=== PATIENT | female | born 2000 | race American Indian/Alaskan Native ===

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

== ENCOUNTER 2019-10-27 09:51 | Emergency (ER) | payer OTHER ==
[~2019-10-27] VITALS: Ht 165.1 cm; Wt 97.9 kg
[~2019-10-27 09:51] MED LIST: PROAAER10 INH
[2019-10-27] MEDS ORDERED: ZOLO50TA PO (09:56)
[2019-10-27] MEDS ORDERED: MONT10TA4 PO (09:57)
--- NOTE | 2019-10-27 10:34 | REPVR ---
PROCEDURE INFORMATION: Exam: XR Right Shoulder Exam date and time: 10/27/2019 10:13 AM Age: 19 years old Clinical indication: Pain; Shoulder; Right; Additional info: Injury, pain TECHNIQUE: Imaging protocol: XR Right shoulder. Views: 2 or more views. COMPARISON: No relevant prior studies available. FINDINGS: Bones/joints: Normal. Soft tissues: Normal. IMPRESSION: No acute findings. Electronically signed by: Navarro Hale On 10/27/2019 10:34:06 AM
[2019-10-27] MEDS ORDERED: IBUPROFEN 800 MG TAB PO ONE (11:00)
[2019-10-27 11:36] VITALS: BP 119/74
== END 2019-10-27 11:42 | disposition home or self-care (01) ==
LOC: M ED 09:51
DX: M25.511 Pain in right shoulder (principal); J45.909 Unspecified asthma, uncomplicated; F41.9 Anxiety disorder, unspecified; Z79.899 Other long term (current) drug therapy; Z91.018 Allergy to other foods